=== PATIENT | male | born 2000 | race Caucasian/White ===

== ENCOUNTER 2021-05-13 14:27 | Emergency (ER) | payer OTHER, SELFPAY ==
[2021-05-13 14:37] VITALS: BP 132/62; PULSE 97; RESP 16; TEMP 37.3; O2SAT 100
--- NOTE | 2021-05-13 15:32 | ED.URI ---
HPI - URI/Sore Throat General Chief Complaint: Upper Respiratory Infection Stated Complaint: Sore Throat Time Seen by Provider: 05/13/21 15:23 Source: patient and RN notes reviewed Mode of arrival: ambulatory Limitations: no limitations History of Present Illness HPI Narrative: Patient presents today with a 2-day history of sore throat, fever up to 103, body aches, occasional headache. Denies congestion, cough, rhinorrhea, nausea, vomiting, diarrhea. Patient has had multiple sick blisters to people who have subsequently tested positive for COVID-19. Currently rates his sore throat 11/15 and has been taking DayQuil, NyQuil, and ibuprofen with some relief. He had 3 negative home tests of 19 at home prior to arrival. MD elicited complaint: fever and sore throat Related Data Allergies Allergy/AdvReac Type Severity Reaction Status Date / Time No Known Allergies Allergy Verified 05/13/21 14:45 Review of Systems Review of Systems: CONSTITUTIONAL: Denies chills, or sweats.+ Body aches, fever EYES: Denies visual changes, redness, or discharge. ENT: Denies rhinorrhea, congestion, or otalgia.+ Sore throat CARDIOVASCULAR: Denies chest pain, palpitations, or edema. RESPIRATORY: Denies cough or dyspnea. GASTROINTESTINAL: Denies abdominal pain, nausea, vomiting, or diarrhea. GENITOURINARY: Denies dysuria or hematuria. SKIN: Denies rash, itching, or wounds. MUSCULOSKELETAL: Denies back pain, joint pain, or myalgia. NEUROLOGIC: Denies numbness, tingling, or weakness.+ Headache PSYCH: Denies depression or anxiety. PMFSH Past Medical History Medical History Body mass index (BMI) of 19 to less than 21 Encounter to establish care Pharyngitis Screening for viral disease Seasonal allergies Tobacco abuse Surgical History Surgical History Hx of oral surgery Family History Family History Grandparent AA (alcohol abuse) Lung cancer Diabetes mellitus Hypertension Grandparent AA (alcohol abuse) Social History Social History Years smoked: 2 Smoking status: Current every day smoker Tobacco type: e-cigarettes/vaping Alcohol use details: Beer - occasionally Substance use: never Comments At time of signature, I have reviewed and agree with nursing past medical, surgical, social and family history unless otherwise noted. Please see nursing chart for further information. There is no relevant family history pertinent to the presenting complaint Exam Narrative: GENERAL: Well-appearing, well-nourished, and in no acute distress. HEAD: Normocephalic, atraumatic. EYES: EOMI. No redness or drainage. Conjunctivae normal. ENT: Mucous membranes pink and moist. Nares clear. No rhinorrhea. TMs normal bilaterally. Throat erythematous without edema or exudate. Uvula midline. NECK: Normal AROM. Supple. No lymphadenopathy. CHEST: No respiratory distress. Clear to auscultation. HEART: Regular rate and rhythm. No murmur appreciated. Normal peripheral pulses. EXTREMITIES: Normal range of motion. No edema. SKIN: Warm, dry, no rash. Capillary refill normal. Normal skin turgor. NEURO: No focal deficits. Alert and oriented x3. Gait steady. PSYCH: Normal affect. No signs of depression or anxiety. Course Course Level of Care: Express Care Visit Vital Signs Vital signs: Vital Signs Temperature 99.2 F 05/13/21 14:37 Pulse Rate 97 05/13/21 14:37 Respiratory Rate 16 05/13/21 14:37 Blood Pressure 132/62 05/13/21 14:37 Pulse Oximetry 100 05/13/21 14:37 Temperature 99.2 F 05/13/21 14:37 Pulse Rate 97 05/13/21 14:37 Respiratory Rate 16 05/13/21 14:37 Blood Pressure 132/62 05/13/21 14:37 Pulse Oximetry 100 05/13/21 14:37 Reviewed. Pt h
[2021-05-14 07:57] LABS: SARS-CoV-2 RNA PCR Negative (Negative)
== END 2021-05-13 15:40 | disposition home or self-care (01) ==
PROVIDERS: Emergency Provider Nurse Practitioner; PCP Nurse Practitioner Family
DX: B34.9 Viral infection, unspecified (principal); Z20.822 Contact with and (suspected) exposure to COVID-19; F17.290 Nicotine dependence, other tobacco product, uncomplicated
CPT/HCPCS: 87081; 87880; 99213; C9803; G0463; U0003; U0005

== ENCOUNTER → 2022-05-14 16:34 | Outpatient (CLI) | payer OTHER, SELFPAY ==
--- NOTE | ~2022-05-14 | XR_ITS ---
XR hip RT 2V w AP pelvis 05/14/2022 16:55 INDICATION: Right hip pain PROCEDURE: AP pelvis and 2 views right hip COMPARISON: No prior studies for comparison. FINDINGS: Fracture, dislocation or subluxation is not identified. Pelvic rings are intact. The soft t issues appear within normal limits. No foreign bodies are identified. Sacral foramen are symmetric. IMPRESSION: 1: NO ACUTE BONE OR JOINT ABNORMALITY IDENTIFIED. Reviewed, dictated and finalized at location A. NITIES DEPARTMENT CHAIR
== END ==
PROVIDERS: PCP Family Medicine; Visit Provider Nurse Practitioner Family
DX: M25.551 Pain in right hip (principal)
CPT/HCPCS: 73502

== ENCOUNTER 2023-04-11 08:52 | Emergency (ER) | payer OTHER, SELFPAY ==
[2023-04-11 09:06] VITALS: BP 153/93; PULSE 65; RESP 18; TEMP 36.2; O2SAT 100
--- NOTE | 2023-04-11 09:33 | ED.URI ---
HPI - URI/Sore Throat General Chief Complaint: Upper Respiratory Infection Stated Complaint: swollen lymph nodes Time Seen by Provider: 04/11/23 09:24 Source: patient and RN notes reviewed Mode of arrival: ambulatory Limitations: no limitations History of Present Illness HPI Narrative: Patient presents today complaining of, ?fluid buildup in my neck behind by lymph nodes. ? When asked to elaborate, patient states, my girlfriend had to have a needle put in her neck once to drain some fluid from her neck. I think that's what I have. Denies sore throat, cough, fever, chills, recent illness. States he has very mild discomfort with swallowing, but no difficulty swallowing or breathing. He has tried no over the counter interventions prior to arrival. Related Data Home Medications Medication Instructions Recorded Confirmed No Home Medications 04/11/23 04/11/23 Allergies Allergy/AdvReac Type Severity Reaction Status Date / Time No Known Allergies Allergy Verified 04/11/23 09:19 Review of Systems Review of Systems: CONSTITUTIONAL: Denies body aches, fever, chills, or sweats. EYES: Denies visual changes, redness, or discharge. ENT: Denies rhinorrhea, congestion, sore throat, or otalgia. + Neck discomfort CARDIOVASCULAR: Denies chest pain, palpitations, or edema. RESPIRATORY: Denies cough or dyspnea. GASTROINTESTINAL: Denies abdominal pain, nausea, vomiting, or diarrhea. GENITOURINARY: Denies dysuria or hematuria. SKIN: Denies rash, itching, or wounds. MUSCULOSKELETAL: Denies back pain, joint pain, or myalgia. NEUROLOGIC: Denies headache, numbness, tingling, or weakness. PSYCH: Denies depression or anxiety. [facility] Past Medical History Medical History Acute right hip pain Body mass index (BMI) of 19 to less than 21 Encounter to establish care Pharyngitis Right hip pain Screening for viral disease Seasonal allergies Tobacco abuse Surgical History Surgical History Hx of oral surgery Family History Family History Grandparent AA (alcohol abuse) Lung cancer Diabetes mellitus Hypertension Grandparent AA (alcohol abuse) Social History Social History Years smoked: 2 Smoking status: Never smoker Tobacco type: e-cigarettes/vaping Alcohol use details: Beer - occasionally Substance use: never Comments At time of signature, I have reviewed and agree with nursing past medical, surgical, social and family history unless otherwise noted. Please see nursing chart for further information. There is no relevant family history pertinent to the presenting complaint Exam Narrative: GENERAL: Well-appearing, well-nourished, and in no acute distress. HEAD: Normocephalic, atraumatic. EYES: EOMI. No redness or drainage. Conjunctivae normal. ENT: Mucous membranes pink and moist. Nares clear. No rhinorrhea. Throat normal. Uvula midline. Patient has a bifurcated uvula NECK: Normal AROM. Supple. Right tonsillar lymph node is swollen and mildly tender. Remainder of neck is nontender, without edema, or any additional abnormalities. CHEST: No respiratory distress. Clear to auscultation. HEART: Regular rate and rhythm. No murmur appreciated. EXTREMITIES: Normal range of motion. No edema. SKIN: Warm, dry, no rash. Capillary refill normal. Normal skin turgor. NEURO: No focal deficits. Alert and oriented x3. Gait steady. PSYCH: Normal affect. No signs of depression or anxiety. Course Course Level of Care: Express Care Visit Vital Signs Vital signs: Vital Signs Temperature 97.1 F L 04/11/23 09:06 Pulse Rate 65 04/11/23 09:06 Respiratory Rate 18 04/11/23 09:06 Blood Pressure 153/93 H 04/11/23 09:06 Pulse Oximetry 100 12
== END 2023-04-11 09:45 | disposition home or self-care (01) ==
PROVIDERS: Emergency Provider Nurse Practitioner; PCP Family Medicine
DX: M54.2 Cervicalgia (principal); R59.0 Localized enlarged lymph nodes; F17.290 Nicotine dependence, other tobacco product, uncomplicated
CPT/HCPCS: 99213; G0463

== ENCOUNTER 2023-07-12 18:36 | Emergency (ER) | payer OTHER, SELFPAY ==
--- NOTE | ~2023-07-12 | CT_ITS ---
EXAMINATION: CT cervical spine wo con DATE: 07/12/2023 21:08 INDICATION: head injury TECHNIQUE: Computed tomography (CT) of the cervical spine was performed without intravenous contrast. Automated exposure control and iterative reconstruction technique were employed. The dose-length pro duct was 352.65 mGy-cm. COMPARISON: 11/07/2018. FINDINGS: Vertebral Body Alignment: Intact. Craniocervical and atlantoaxial alignment: No significant degenerative change. Alignment intact. Osseous structures/fracture: No evidence of a lytic or blastic process in the visualized spine. No e vidence of acute fracture. Cervical soft tissues: The paraspinal soft tissues planes are maintained. Degenerative changes: No significant degenerative changes. IMPRESSION: No acute fracture or traumatic malalignment in the cervical spine. Reviewed, dictated and finalized at location K. GER POOL
--- NOTE | ~2023-07-12 | CT_ITS ---
EXAMINATION: CT brain wo con DATE: 07/12/2023 21:09 INDICATION: head injury . TECHNIQUE: Computed tomography (CT) of the head was performed without intravenous contrast. The mA wa s adjusted according to patient size. Iterative reconstruction technique was employed. The dose-lengt h product was 605.33 mGy-cm. COMPARISON: None. FINDINGS: No acute intracranial hemorrhage or extra-axial fluid collection. No hydrocephalus, mass, or herniation. No acute ischemic infarct. Small posterior scalp contusion. Unremarkable dural venous sinus attenuation. No acute osseous abnormality. The aerated spaces are clear. IMPRESSION: No acute intracranial process. Reviewed, dictated and finalized at location K. 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
[2023-07-12 18:45] VITALS: BP 134/70; PULSE 60; RESP 16; TEMP 36.3; O2SAT 98
[2023-07-12] MEDS: HYDROcodone/acetaminophen (*CRX) 5-325 MG TABLET 1 TAB PO (20:50)
--- NOTE | 2023-07-12 20:56 | ED.HEATRA ---
HPI - Head Injury General Chief complaint: Head Injury Stated complaint: beam fell on head Time Seen by Provider: 07/12/23 20:28 History of Present Illness HPI Narrative: 22-year-old male presents to emergency department for head injury that occurred today at work. Patient states a support being fall onto his head about 3 ft above his head. States that hit the back of his head. He is reporting pain in this area and his neck. Denies LOC but does state that his vision went black for a second. Denies nausea, vomiting, other vision changes or focal numbness or weakness. He is not anticoagulated. Related Data Home Medications Medication Instructions Recorded Confirmed No Home Medications 04/11/23 04/11/23 Allergies Allergy/AdvReac Type Severity Reaction Status Date / Time No Known Allergies Allergy Verified 07/12/23 18:36 Review of Systems Review of Systems: CONSTITUTIONAL: Denies fever, chills, or sweats. EYES: Denies visual changes, redness, or discharge. ENT: Denies rhinorrhea, congestion, sore throat, or otalgia. CARDIOVASCULAR: Denies chest pain, palpitations, or edema. RESPIRATORY: Denies cough or dyspnea. GASTROINTESTINAL: Denies abdominal pain, nausea, vomiting, or diarrhea. GENITOURINARY: Denies dysuria or hematuria. SKIN: Denies rash or itching. MUSCULOSKELETAL: Denies back pain, joint pain, or myalgia. NEUROLOGIC: See HPI PSYCHIATRIC: Denies anxiety or depression. [facility] Past Medical History Medical History Acute right hip pain Body mass index (BMI) of 19 to less than 21 Encounter to establish care Pharyngitis Right hip pain Screening for viral disease Seasonal allergies Tobacco abuse Surgical History Surgical History Hx of oral surgery Family History Family History Grandparent AA (alcohol abuse) Lung cancer Diabetes mellitus Hypertension Grandparent AA (alcohol abuse) Social History Social History Years smoked: 2 Smoking status: Never smoker Tobacco type: e-cigarettes/vaping Alcohol use details: Beer - occasionally Substance use: never Exam Narrative: GENERAL: Well-appearing, well-nourished, and in no acute distress. HEAD: Hematoma to the left occiput without overlying abrasions or lacerations. EYES: PERRLA and EOMI. ENT: Nares clear, no rhinorrhea or epistaxis. Mucous membranes moist. NECK: Supple. CHEST: Clear to auscultation. No respiratory distress. HEART: Regular rate and rhythm. No murmur heard. Normal peripheral pulses. ABDOMEN: Soft, nontender, nondistended, normal active bowel sounds. EXTREMITIES: Normal range of motion. No edema. SKIN: Warm, dry, no rash. NEURO: No focal deficits. Alert and oriented x3. Cranial nerves 2-12 intact. Strength 5/5 in BUE and BLE. Sensation intact throughout Course Vital Signs Vital signs: Vital Signs Temperature 97.4 F L 07/12/23 18:45 Pulse Rate 60 07/12/23 18:45 Respiratory Rate 16 07/12/23 18:45 Blood Pressure 134/70 07/12/23 18:45 Pulse Oximetry 98 07/12/23 18:45 Oxygen Delivery Room Air 07/12/23 18:45 Temperature 97.4 F L 07/12/23 18:45 Pulse Rate 60 07/12/23 18:45 Respiratory Rate 16 07/12/23 18:45 Blood Pressure 134/70 07/12/23 18:45 Pulse Oximetry 98 07/12/23 18:45 Oxygen Delivery Room Air 07/12/23 18:45 MDM - Head Injury MDM Narrative Medical decision making narrative: 22-year-old male presents to emergency department for a head injury that occurred today. See HPI for further history. Vitals stable. Patient is neurovascularly intact, exam significant for the above. CT cervical spine shows no acute fracture traumatic malalignment. CT brain shows no acute intracranial findings. Patient received
[2023-07-12 21:55] VITALS: BP 119/76; PULSE 88; RESP 16; TEMP 36.6; O2SAT 97
== END 2023-07-12 21:55 | disposition home or self-care (01) ==
PROVIDERS: Emergency Provider Physician Assistant; PCP Family Medicine
DX: S00.03XA Contusion of scalp, initial encounter (principal); F17.290 Nicotine dependence, other tobacco product, uncomplicated; W20.8XXA Other cause of strike by thrown, projected or falling object, initial encounter
CPT/HCPCS: 70450; 72125; 99284; A9270

== ENCOUNTER 2023-08-05 17:24 | Emergency (ER) | payer OTHER, SELFPAY ==
[2023-08-05 17:41] VITALS: BP 137/72; PULSE 83; RESP 18; TEMP 37.2; O2SAT 98
--- NOTE | 2023-08-05 17:41 | ED.GENADULT ---
HPI - General Adult General Chief complaint: Skin/Abscess/Foreign Body Stated complaint: lt ring finger pain and swelling Time Seen by Provider: 08/05/23 17:41 Source: patient, RN notes reviewed and old records reviewed Mode of arrival: ambulatory Limitations: no limitations History of Present Illness HPI narrative: 22-year-old male presents to the [facility] with redness, swelling and pus draining from the left ring finger that started 3 days ago. 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 Onset (ago): day(s) (3) Related Data Allergies Allergy/AdvReac Type Severity Reaction Status Date / Time No Known Allergies Allergy Verified 08/05/23 17:43 Review of Systems Review of Systems: All systems reviewed & are unremarkable except as noted in HPI and below Constitutional: Constitutional: Reports no additional constitutional complaints Eyes: Eyes: Reports no additional eye complaints ENT: Reports system reviewed and no additional complaints, except as documented Cardiovascular: Cardiovascular: Reports no additional cardiovascular complaints, Denies chest pain and Denies dyspnea Respiratory: Respiratory: Reports no additional respiratory complaints, Denies chest congestion, Denies cough and Denies dyspnea Gastrointestinal: Gastrointestinal: Reports no additional gastrointestinal complaints, Denies abdominal pain, Denies nausea and Denies vomiting Musculoskeletal: Musculoskeletal: Reports no additional musculoskeletal complaints Integumentary/Breasts: Skin/Breast: Reports as per HPI Neurologic: Reports system reviewed and no additional complaints, except as documented Psychiatric: Psychiatric: Reports no additional psychiatric complaints Allergic/Immunologic: Allergic/Immunologic: Reports no additional allergic/immunologic complaints PMFSH Past Medical History Medical History Acute right hip pain Body mass index (BMI) of 19 to less than 21 Encounter to establish care Pharyngitis Right hip pain Screening for viral disease Seasonal allergies Tobacco abuse Surgical History Surgical History Hx of oral surgery Family History Family History Grandparent AA (alcohol abuse) Lung cancer Diabetes mellitus Hypertension Grandparent AA (alcohol abuse) Social History Social History Years smoked: 2 Smoking status: Never smoker Tobacco type: e-cigarettes/vaping Alcohol use details: Beer - occasionally Substance use: never Comments At the time of my signature, I reviewed and agree with the nursing past medical, surgical, social, and family history. There is no relevant family history pertinent to the patient complaint. Exam Const: General: cooperative, healthy appearing, comfortable, no acute distress, well developed, alert and well nourished Nutritional Appearance: well nourished Orientation/consciousness: patient oriented x3 Limitations: no limitations HENMT: Head: normal to inspection Ears: hearing grossly normal bilaterally and external ears normal Face/Nose/Sinus: Normal external nose present, Normal nares present, Normal nasal mucous membranes and turbinates present, normal facial exam and face symmetric Face and sinus: normal facial exam and face symmetric Eyes: General: appearance normal, both eyes and all related structures Alignment and Position: alignment normal Periorbital: periorbital findings normal Pupils: Equal, round and reactive pupils present EOM: EOMs intact bilaterally Neck: Neck: normal visual inspection, full ROM, no lymphadenopathy and no meningeal signs Chest: Chest palpation & inspection: normal inspection of the chest Resp: Effort & Inspection: normal respiratory effort and able
[2023-08-05 17:43] VITALS: BP 137/72; PULSE 83; RESP 18; TEMP 37.2; O2SAT 98
[2023-08-05] MEDS: LIDOCAINE HCL 1% LOCAL INJ 2 ML AMPUL 4 ML INFILTRATE (18:02)
== END 2023-08-05 18:18 | disposition home or self-care (01) ==
PROVIDERS: Emergency Provider Nurse Practitioner; PCP Nurse Practitioner Family
DX: L03.012 Cellulitis of left finger (principal); F17.290 Nicotine dependence, other tobacco product, uncomplicated
CPT/HCPCS: 10060; 87070; 87075; 87181; 87205; 99213; G0463

== ENCOUNTER 2024-03-20 22:05 | Emergency (ER) | payer OTHER, SELFPAY ==
--- NOTE | ~2024-03-20 | XR_ITS ---
HISTORY: knee pop while playing soccer COMPARISON: None TECHNIQUE: 4 views of the right knee were performed FINDINGS: No acute or subacute fracture, erosion, lytic or sclerotic lesion. Trace medial tibiofemoral joint space narrowing is identified. No suprapatellar joint effusion is identified. The infrapatellar joint space is clear. IMPRESSION: No acute fracture or dislocation, as detailed above. If symptoms persist, follow-up with noncontrast enhanced MRI of the right knee to further evaluate fo r a derangement. Reviewed, dictated and finalized at location A. 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 If symptoms persist, follow-up with noncontrast enhanced MRI of the right knee to further evaluate for a derangement.
[2024-03-20 22:06] VITALS: BP 115/54; PULSE 94; RESP 14; TEMP 36.4; O2SAT 98
--- NOTE | 2024-03-21 00:18 | ED_ITS ---
HPI - Extremity Injury (Lower) General Chief Complaint: Extremity Injury, Lower Stated Complaint: R knee pain after hearing pop Time Seen by Provider: 03/20/24 23:43 History of Present Illness HPI Narrative: 23-year-old male presents emergency department for right knee pain after an in jury that occurred today. Patient states he was playing soccer when he collided with another player. He landed on the ground but is unsure how he injured his knee. States a few minutes later he was up running when he felt a pop in his right knee and has been unable to bear weight since. He did not hit his head when he fell and he denies other injuries. He has never had injuries to his knee before. No numbness or tingling. Related Data Allergies Allergy/AdvReac Type Severity Reaction Status Date / Time No Known Allergies Allergy Verified 03/20/24 22:06 Review of Systems Review of Systems: All systems reviewed & are unremarkable except as noted in HPI and below PMFSH Past Medical History Medical History Acute right hip pain Body mass index (BMI) of 19 to less than 21 Encounter to establish care Pharyngitis Right hip pain Screening for viral disease Seasonal allergies Tobacco abuse Surgical History Surgical History Hx of oral surgery Family History Family History Grandparent AA (alcohol abuse) Lung cancer Diabetes mellitus Hypertension Grandparent AA (alcohol abuse) Social History Social History Years smoked: 2 Smoking status: Never smoker Tobacco type: e-cigarettes/vaping Alcohol use details: Beer - occasionally Substance use: never Exam Narrative: GENERAL: Well-appearing, well-nourished, and in no acute distress. HEAD: Normocephalic, atraumatic. EYES: EOMI. ENT: Nares clear, no rhinorrhea or epistaxis. Mucous membranes moist. NECK: Supple. CHEST: Clear to auscultation. No respiratory distress. HEART: Regular rate and rhythm. No murmur heard. Normal peripheral pulses. EXTREMITIES: RLE: Tenderness to the lateral joint line with no obvious deformity, ecchymosis or edema. Full active and passive range of motion of knee. No laxity with anterior or posterior drawer, varus or valgus stress. DP pulse 2 +. Sensation intact. SKIN: Warm, dry, no rash. NEURO: No focal deficits. Alert and oriented x3 Course Vital Signs Vital signs: Vital Signs Temperature 97.6 F 03/20/24 22:06 Pulse Rate 94 03/20/24 22:06 Respiratory Rate 14 03/20/24 22:06 Blood Pressure 115/54 L 03/20/24 22:06 Pulse Oximetry 98 03/20/24 22:06 Oxygen Delivery Room Air 03/20/24 22:06 Temperature 97.6 F 03/20/24 22:06 Pulse Rate 68 03/21/24 00:40 Respiratory Rate 18 03/21/24 00:40 Blood Pressure 128/80 03/21/24 00:40 Pulse Oximetry 98 03/21/24 00:40 Oxygen Delivery Room Air 03/20/24 22:06 MDM - Extremity Injury (Lower) MDM Narrative Medical decision making narrative: 23-year-old male presents emergency department for right knee pain after an injury that occurred today while playing soccer. See HPI for further history. Vitals are stable. Exam is significant for tenderness to the lateral joint line with no obvious deformity, ecchymosis or edema. Patient has full active and passive range of motion of knee. He is neurovascularly intact. X-ray showed no acute findings. He was placed in a knee immobilizer provided with crutches and ibuprofen. Advised to follow up with his PCP and Orthopedics if pain persists. Discussed strict ED return precautions. He is agreeable with the plan and verbalized understanding. Discharged in stable condition. Discharge Plan Discharge Clinical Impression: Acute pain of right knee Patient Disposition: Home, Self-Care Condition: Stable Instructions: Antibiotic Form, Knee Pain (ED) Additional Instructions: Your evaluated in the emergency department for any pain after a soccer injury. The x-ray of your knee is unremarkable. Please rest, ice, elevate your knee and wear the knee immobilizer as discussed. He can take Tylenol ibuprofen as needed for pain. Follow-up with your primary care provider. If symptoms persist, please follow-up with orthopedics for further evaluation. You may need an MRI to see your soft tissues and ligaments. Prescriptions: No Action cephalexin 500 mg capsule 500 mg PO TID 7 Days Qty: 21 0RF Follow-up/Referrals: Jhon Jovel MD [Physician] - 1 Week Rosemary Seo NP [Primary Care Provider] - Stand Alone Forms: Work/School Release IP
[2024-03-21] MEDS: IBUPROFEN 400 MG TABLET 800 MG PO (00:23)
[2024-03-21 00:40] VITALS: BP 128/80; PULSE 68; RESP 18; O2SAT 98
== END 2024-03-21 00:43 | disposition home or self-care (01) ==
PROVIDERS: Emergency Provider Physician Assistant; PCP Nurse Practitioner Family
DX: M25.561 Pain in right knee (principal); X58.XXXA Exposure to other specified factors, initial encounter; Y93.66 Activity, soccer
CPT/HCPCS: 73564; 99283; A9270

== ENCOUNTER 2024-03-25 16:10 | Emergency (ER) | payer OTHER, SELFPAY ==
--- NOTE | 2024-03-25 16:24 | ED_ITS ---
HPI - Extremity Injury (Lower) General Chief Complaint: Extremity Injury, Lower Stated Complaint: RT Knee injury Time Seen by Provider: 03/25/24 16:52 Source: patient, RN notes reviewed and old records reviewed Mode of arrival: ambulatory Limitations: no limitations History of Present Illness HPI Narrative: 23-year-old male presents to the [facility] with continued right knee pain. Was evaluated in the ER on the 20 of March. Had a negative x-ray. Was recommended to follow-up with primary care and/or ortho for possible MRI. Patient is still needing to use a crutch and a brace as well as still having some significant lateral pain. Patient reports that he did have an appointment with his primary care provider but missed the appointment due to not having a ride. Patient was requesting a modified, light duty work note. Explained that we can give a couple of days off but if he needs light duty or modified work that needs to come from either Ortho or primary Related Data Home Medications Medication Instructions Recorded Confirmed No Home Medications 03/25/24 03/25/24 Allergies Allergy/AdvReac Type Severity Reaction Status Date / Time No Known Allergies Allergy Verified 03/25/24 16:22 Review of Systems Review of Systems: All systems reviewed & are unremarkable except as noted in HPI and below Constitutional: Constitutional: Reports no additional constitutional complaints ENT: Reports system reviewed and no additional complaints, except as documented Cardiovascular: Cardiovascular: Reports no additional cardiovascular complaints, Denies chest pain and Denies dyspnea Respiratory: Respiratory: Reports no additional respiratory complaints, Denies chest congestion, Denies cough and Denies dyspnea Gastrointestinal: Gastrointestinal: Reports no additional gastrointestinal complaints, Denies abdominal pain, Denies nausea and Denies vomiting Musculoskeletal: Musculoskeletal: Reports as per HPI Integumentary/Breasts: Skin/Breast: Reports system reviewed and no additional complaints, except as docu PMFSH Past Medical History Medical History Acute right hip pain Body mass index (BMI) of 19 to less than 21 Encounter to establish care Pharyngitis Right hip pain Screening for viral disease Seasonal allergies Tobacco abuse Surgical History Surgical History Hx of oral surgery Family History Family History Grandparent AA (alcohol abuse) Lung cancer Diabetes mellitus Hypertension Grandparent AA (alcohol abuse) Social History Social History Years smoked: 2 Smoking status: Never smoker Tobacco type: e-cigarettes/vaping Alcohol use details: Beer - occasionally Substance use: never Comments At the time of my signature, I reviewed and agree with the nursing past medical, surgical, social, and family history. There is no relevant family history pertinent to the patient complaint. Exam Const: General: cooperative, healthy appearing, comfortable, no acute distress, well developed, alert and well nourished Nutritional Appearance: well nourished Orientation/consciousness: patient oriented x3 Limitations: no limitations HENMT: Head: normal to inspection Ears: hearing grossly normal bilaterally and external ears normal Face/Nose/Sinus: Normal external nose present, normal facial exam and face symmetric Face and sinus: normal facial exam and face symmetric Eyes: General: appearance normal, both eyes and all related structures Alignment and Position: alignment normal Periorbital: periorbital findings normal Neck: Neck: normal visual inspection, full ROM, no lymphadenopathy and no meningeal signs Chest: Chest palpation & inspection: normal inspection of the chest Resp: Effort & Inspection: normal respiratory effort and able to speak in complete sentences Cardio: Rate: regular rate Skin: General skin exam: normal color and no rashes or lesions noted Lesions: no lesions Rashes: no rashes Wounds: no wounds Neuro: General: patient oriented x3, gait normal, tone normal, moves all extremities and no meningeal signs Cognition (Neuro): normal cognition Speech: normal speech Gait exam (Neuro): Normal gait present Other: Using a crutch and has brace in place over right knee Extrem: General: normal to inspection, full ROM, capillary refill normal and normal gait Right lower extremity: knee (Currently wearing a brace reports pain to the lateral aspect) Psych: Appearance: grossly normal and well kempt Mental Status: mental sta tus grossly normal Speech and movement: Normal speech and movement present and Clear speech present Affect: normal affect Attitude: cooperative Course Course Level of Care: Express Care Visit Vital Signs Vital signs: Vital Signs Temperature 98.3 F 03/25/24 16:39 Pulse Rate 97 03/25/24 16:39 Respiratory Rate 16 03/25/24 16:39 Blood Pressure 118/82 03/25/24 16:39 Pulse Oximetry 96 03/25/24 16:39 Oxygen Delivery Room Air 03/25/24 16:39 Temperature 98.3 F 03/25/24 16:39 Pulse Rate 97 03/25/24 16:39 Respiratory Rate 16 03/25/24 16:39 Blood Pressure 118/82 03/25/24 16:39 Pulse Oximetry 96 03/25/24 16:39 Oxygen Delivery Room Air 03/25/24 16:39 Reviewed MDM - Extremity Injury (Lower) MDM Narrative Medical decision making narrative: Patient sitting in exam room. Nontoxic, vitals stable. Patient in no acute distress Patient presents requesting a modification of work to light duty due to knee injury. States that he did miss his primary care appointment. Explained to patient that we cannot do a modification of work, this needs to come from a primary orthopedist. Patient states that he will call his primary in the morning Discharge instructions reviewed with patient, as well as provided in writing per nursing staff. The instructions also include specific and strict return/GO TO THE ER as well as f/u information. All questions have been answered, and the patient deny any further questions with discharge and discharge plan. Some parts of this dictation were generated by voice recognition software and may contain typographical and/or grammatical inaccuracies. Differential Diagnosis Differential diagnosis: Likely other (Ligament injury, strain /sprain knee) Critical Care Time Critical Care Time Critical Care Time: No Discharge Plan Discharge Clinical Impression: Acute pain of right knee Patient Disposition: Home, Self-Care Condition: Stable Instructions: Antibiotic Form, Knee Pain (ED) Additional Instructions: Please call primary care provider tomorrow morning Follow-up with the orthopedist as needed Patient Language: Greenlandic Prescriptions: No Action No Home Medications Follow-up/Referrals: Rosemary Seo NP [Primary Care Provider] - 2 Days (express care follow up ) Time of Disposition: 16:56
[2024-03-25 16:39] VITALS: BP 118/82; PULSE 97; RESP 16; TEMP 36.8; O2SAT 96
== END 2024-03-25 16:57 | disposition home or self-care (01) ==
PROVIDERS: Emergency Provider Nurse Practitioner; PCP Nurse Practitioner Family
DX: M25.561 Pain in right knee (principal); F17.290 Nicotine dependence, other tobacco product, uncomplicated
CPT/HCPCS: 99212; G0463

== ENCOUNTER 2024-04-13 08:12 | Outpatient (CLI) | payer OTHER, SELFPAY ==
--- NOTE | ~2024-04-13 | MR_ITS ---
MRI of the right knee Clinical history: Pain Technique: Coronal proton density and proton density-weighted images, sagittal proton-density and T2 fat-sat images, and axial proton-density fat-saturated images were acquired. Findings: There is complete tear at the midportion of the ACL. Posterior cruciate ligament intact. Me dial collateral ligament and the lateral collateral ligament conflux are intact. Popliteus tendon is intact. Medial and lateral menisci are intact, without evidence of tear. No definite evidence for posterolate ral corner injury. There are transchondral impaction injuries with associated marrow edema at the central aspect of the lateral femoral condyle and posterolateral tibial plateau, compatible with recent pivot shift injury. There additional minimal contusions at the central aspect of the proximal tibia no other chondral le ansley identified. Extensor mechanism is intact. Small to moderate joint effusion. No Chou's cyst.. Impression: Acute, complete ACL tear at its midportion. Transchondral impaction injuries at the central aspect of the lateral femoral condyle and posterolate ral tibial plateau, compatible recent pivot shift injury. Small to moderate joint effusion. Additional minimal contusions at the central aspect of the proximal tibia. Reviewed, dictated and finalized at [facility]. [employer] Impression: Acute, complete ACL tear at its midportion. Transchondral impaction injuries at the central aspect of the lateral femoral c ondyle and posterolateral tibial plateau, compatible recent pivot shift injury. Small to moderate joint effusion. Additional minimal contusions at the central aspect of the proximal tibia.
== END 2024-04-13 08:13 | disposition home or self-care (01) ==
LOC: GOSHIMG 08:18
PROVIDERS: PCP Orthopaedic Surgery; Visit Provider Orthopaedic Surgery
DX: S72.421A Displaced fracture of lateral condyle of right femur, initial encounter for closed fracture (principal); S82.141A Displaced bicondylar fracture of right tibia, initial encounter for closed fracture; X58.XXXA Exposure to other specified factors, initial encounter
CPT/HCPCS: 73721